=== PATIENT | male | born 1985 | race Caucasian/White ===

== ENCOUNTER 2018-08-01 20:16 | Emergency (ER) | payer BC, OTHER ==
[2018-08-01 20:29] VITALS: O2SAT 99
[2018-08-01 20:30] VITALS: TEMP 98.6
[2018-08-01] MEDS ORDERED: Lidocaine 1% Inj (20ml) IJ STA (20:42)
[2018-08-01] MEDS ORDERED: Lidocaine Hydrochloride 1% 10 ML ONE (20:50)
--- NOTE | 2018-08-01 21:11 | ED PDOC ---
HPI: Skin/Bite Injury Time Seen by Provider: 08/01/18 20:36 Chief Complaint (Nursing): Abnormal Skin Integrity Chief Complaint (Provider): Abnormal skin integrity History Per: Patient History/Exam Limitations: no limitations Onset/Duration Of Symptoms: Days (4x) Current Symptoms Are (Timing): Still Present Location Of Injury: Right: Thigh, Anterior: Thigh Severity: Moderate Additional Complaint(s): 32 year old male with no past medical history presents to the ED for an evaluation of a small bump on his right leg that he noticed 3x days ago. Patient states that the bump has gotten bigger and more red. Patient states that he went to Urgent care and was prescribed bactrim which he has been taking for 3x days with no improvement. Patient denies having drainage, bleeding, fevers, or chills. PMD: None provided. Past Medical History Reviewed: Historical Data, Nursing Documentation, Vital Signs Vital Signs: Last Vital Signs Temp 98.6 F 08/01/18 20:28 Pulse 62 08/01/18 20:28 Resp 16 08/01/18 20:28 BP 156/95 H 08/01/18 20:28 Pulse Ox 99 08/01/18 20:28 YAJAIRA Report Viewed: Yes Primary Care Provider: FAMILY PROVIDER,NO - Medical History PMH: No Chronic Diseases - Surgical History Surgical History: No Surg Hx - Family History Family History: States: No Known Family Hx - Social History Current smoker - smoking cessation education provided: No Alcohol: None - Home Medications Home Medications: Ambulatory Orders Medication Instructions Recorded Doxycycline Hyclate 100 mg PO BID #20 capsule 08/01/18 Naproxen [Naprosyn] 500 mg PO BID PRN #15 tablet 08/01/18 - Allergies Allergies/Adverse Reactions: Allergies Allergy/AdvReac Type Severity Reaction Status Date / Time No Known Allergies Allergy Verified 08/01/18 20:31 Review of Systems ROS Statement: Except As Marked, All Systems Reviewed And Found Negative Constitutional: Negative for: Fever, Chills Skin: Positive for: Other (small bump to right leg (growing bigger, increased redness). (-) dainage, (-) bleeding.) Physical Exam - Reviewed Nursing Documentation Reviewed: Yes Vital Signs Reviewed: Yes - Physical Exam Appears: Positive for: Well, Non-toxic, No Acute Distress Head Exam: Positive for: ATRAUMATIC, NORMOCEPHALIC Skin: Positive for: Normal Color, Warm, Dry Extremity: Positive for: Other (right anterior thigh: 5 cm area of induration with minimal fluctuance centrally. (-) vesicles, (-) active drainage, (-) bleeding, (-) crepitus, pain not [id number]) Neurological/Psych: Positive for: Awake, Alert, Oriented (3x) - Laboratory Results Result Diagrams: 08/01/18 20:49 08/01/18 20:49 - ECG O2 Sat by Pulse Oximetry: 99 (RA) Pulse Ox Interpretation: Normal Medical Decision Making Medical Decision Makin:36 Initial impression: 32 year old male with cellulitis or abscess. Initial plan: * CMP * CBC with differential * PT/PTT * toradol 15 mg IM * blood culture * wound culture * reevaluation * Vancomycin 22:50 Pt feels better, reevaluated, area of induration demarcated with skin marker. Pt with blanching erythema anterior thigh, non-circumferential, nontender. Pt states he had been placing very hot water in Ziploc bag on leg and redness may be due to this. Pt advised to return to ED in 48 hours for wound check. Advised to return sooner if symptoms worse, fever, increasing pain, or any other concerns. Agreed with plan. Scribe Attestation: Documented by Kimberli Silva, acting as a scribe for Flor Desai MD. Provider Scribe Attestation: All medical record entries made by the Scribe were at my direction and personally dictated by me. I have reviewed the chart and agree that the record accurately reflects my personal performance of the history, physical exam, medical decision making, and the department course for this patient. I have also personally directed, reviewed, and agree with the discharge instructions and disposition. Disposition - Clinical Impression Clinical Impression: Cellulitis and abscess of leg - Disposition Referrals: Perla Grayson [Outside] Disposition: Routine/Home Disposition Time: 22:38 Condition: STABLE Additional Instructions: RETURN TO ED IN 48 HOURS FOR WOUND CHECK. Prescriptions: Doxycycline Hyclate 100 mg PO BID #20 capsule Naproxen [Naprosyn] 500 mg PO BID PRN #15 tablet PRN Reason: Pain, Moderate (4-7) Instructions: Cellulitis and Erysipelas (Skin Infections), Skin Abscess Forms: [employer] I/O (Turkish) Procedures - Time-Out Type of Procedure: needle aspiration Site of Procedure: right anterior thigh Correct Patient (with visual ID + MR# on ID Band): Yes Correct Procedure: Yes Correct Site Marked: Yes Medication Reconciliation / Bloodwork / Allergies Checked: Yes Physician Name: Flor Desai MD - Incision and Drainage Site: right anterior thigh Progress: Obtained verbal consent Obtained wound cultures used 0.5 ccs 1% lido Patient tolerated procedure well
[2018-08-01 21:22] LABS: BASO # 0.1 K/uL (0.0-0.2); EOS # 0.3 K/uL (0.0-0.7); EOS % 3.1 % (0.0-4.0); HEMOGLOBIN 12.9 g/dL (12.0-18.0); LYMPH # 1.8 K/uL (1.0-4.3); LYMPH % 18.7 % (20.0-40.0); MEAN CELL VOLUME 80.7 fl (80.0-94.0); MEAN CORPUSCULAR HEMOGLOBIN 26.9 pg (27.0-31.0); MEAN CORPUSCULAR HGB CONC 33.4 g/dL (33.0-37.0); MEAN PLATELET VOLUME 10.1 fl (7.2-11.7); MONO # 1.4 K/uL (0.0-0.8); MONO % 14.2 % (0.0-10.0); RBC 4.79 Mil/uL (4.40-5.90); WHITE BLOOD COUNT 9.6 K/uL (4.8-10.8)
[2018-08-01 21:31] LABS: PARTIAL THROMBOPLASTIN TIME 35.9 Seconds (25.6-37.1)
[2018-08-01 21:32] LABS: ALB/GLOB RATIO 1.5 (1.0-2.1); ALBUMIN 5.1 g/dL (3.5-5.0); ALT/SGPT 33 U/L (21-72); AST/SGOT 39 U/L (17-59); BLOOD UREA NITROGEN 20 mg/dl (9-20); CALCIUM 9.7 mg/dL (8.4-10.2); GFR NON-AFRICAN AMERICAN > 60
[2018-08-01] MEDS ORDERED: Vancomycin 1 g Inj ONE (21:37)
[2018-08-02 00:43] VITALS: BP 110/62; PULSE 59; RESP 18
== END 2018-08-01 23:50 | disposition home or self-care (01) ==
LOC: H.ER 20:16
DX: L02.415 Cutaneous abscess of right lower limb (principal)
CPT/HCPCS: 10060; 80053; 85025; 85610; 85730; 87040; 87070; 96365; 96375; 99284; J1885

== ENCOUNTER 2018-08-03 16:17 | Emergency (ER) | payer BC ==
[2018-08-03 17:02] VITALS: BP 129/78; PULSE 66; RESP 16; TEMP 98.3; O2SAT 100
--- NOTE | 2018-08-03 18:23 | ED PDOC ---
HPI: Wound Care - HPI Time Seen by Provider: 08/03/18 18:15 Chief Complaint (Nursing): Wound Check Chief Complaint (Provider): wound check History Per: Patient Exam Limitations: no limitations Onset/Duration Of Symptoms: Days (2x) Current Symptoms Are (Timing): Better Location Of Injury: Right: Leg Quality Of Symptoms: Draining Severity: Moderate Additional Complaint(s): 32 year old male with no pertinent past medical history presents to the ED for a wound check. Patient was seen here 2x days ago and was diagnosed with cellulitis and a skin abscess of the leg. Patient reports taking the antibiotics as prescribed, and reports an improvement in symptoms. Patient states that pain has decreased, but that the wound is still draining. Patient states that he is able to walk. Patient denies having fevers. PMD: None provided. Past Medical History Reviewed: Historical Data, Nursing Documentation, Vital Signs Vital Signs: Last Vital Signs Temp 98.3 F 08/03/18 16:57 Pulse 66 08/03/18 16:57 Resp 16 08/03/18 16:57 BP 129/78 08/03/18 16:57 Pulse Ox 100 08/03/18 16:57 YAJAIRA Report Viewed: Yes Primary Care Provider: FAMILY PROVIDER,NO - Medical History PMH: No Chronic Diseases - Family History Family History: States: No Known Family Hx - Social History Current smoker - smoking cessation education provided: No Alcohol: None Drugs: Denies - Home Medications Home Medications: Ambulatory Orders Medication Instructions Recorded Doxycycline Hyclate 100 mg PO BID #20 capsule 08/01/18 Naproxen [Naprosyn] 500 mg PO BID PRN #15 tablet 08/01/18 - Allergies Allergies/Adverse Reactions: Allergies Allergy/AdvReac Type Severity Reaction Status Date / Time No Known Allergies Allergy Verified 08/03/18 16:57 Review of Systems ROS Statement: Except As Marked, All Systems Reviewed And Found Negative Musculoskeletal: Positive for: Other (some drainage from wound of right leg) Physical Exam - Reviewed Nursing Documentation Reviewed: Yes Vital Signs Reviewed: Yes - Physical Exam Appears: Positive for: Well, Non-toxic, No Acute Distress Head Exam: Positive for: ATRAUMATIC, NORMOCEPHALIC Skin: Positive for: Normal Color, Warm, Dry Extremity: Positive for: Normal ROM, Other (right leg: redness below line of demarcation (made by provider from previous visit). drainage noted to wound.) Neurological/Psych: Positive for: Awake, Alert, Oriented (3x) - ECG O2 Sat by Pulse Oximetry: 100 (RA) Pulse Ox Interpretation: Normal Medical Decision Making Medical Decision Makin:15 Initial impression: 32 year old male in the ED for a wound check 18:22 Wound redressed with clean dressing and cling. Patient is medically stable, and requires no further treatment in the ED at this time. Patient will be discharged home with instructions to return to the ED in 48-72x hours for a wound check. Patient states that he will probably look for a PMD to follow up with. Patient states that he will return to ED for a follow up if he is unable to find a PMD. Counseling was provided and all questions were answered regarding diagnosis. There is agreement to discharge plan. Patient instructed to return to ED if he starts experiencing fevers, increased pain to the leg, increased redness or swelling. Patient instructed to continue taking antibiotics. ScribeAttestation: Documented byKimberli Silva, acting as a scribe for Oriana ACEVEDON. Provider ScribeAttestation: All medical record entries made by the Scribe were at my direction and personally dictated by me. I have reviewed the chart and agree that the record accurately reflects my personal performance of the history, physical exam, medical decision making, and the department course for this patient. I have also personally directed, reviewed, and agree with the discharge instructions and disposition. Disposition - Clinical Impression Clinical Impression: Wound check, abscess - Patient ED Disposition Is Patient to be Admitted: No Counseled Patient/Family Regarding: Diagnosis, Need For Followup - Disposition Disposition: Routine/Home Disposition Time: 18:22 Condition: GOOD Instructions: Wound Care (DC) Forms: [employer] (Jordanian) Print Language: CHINESE - POA Present On Arrival: None
== END 2018-08-03 18:23 | disposition home or self-care (01) ==
LOC: H.ER 16:17
DX: L02.415 Cutaneous abscess of right lower limb (principal); Z48.00 Encounter for change or removal of nonsurgical wound dressing